=== PATIENT | female | born 1990 | race Caucasian/White ===

== ENCOUNTER → 2017-05-25 | Outpatient (REF) | payer BC | LOC: M LAB REF 12:13 | PROVIDERS: ATTEND Physician Assistant | DX: N39.0 Urinary tract infection, site not specified (principal) ==

== ENCOUNTER → 2017-12-08 | Outpatient (REF) | payer BC | LOC: M LAB REF 19:30 | DX: N39.0 Urinary tract infection, site not specified (principal) ==

== ENCOUNTER → 2018-02-06 | Outpatient (REF) | payer BC ==
[2018-02-06 17:40] LABS: BASO % 0.5 % (0.0-1.0); EOS # 0.2 10^3/uL (0.0-0.50); EOS % 2.4 % (0.0-3.0); HEMATOCRIT 40.9 % (36.0-47.0); HEMOGLOBIN 13.3 g/dl (12.0-15.5); IMMATURE GRANULOCYTE % 0.1 % (0-3.0); LYMPH % 25.5 % (24.0-44.0); MEAN CORPUSCULAR HEMOGLOBIN 31.1 pg (27.0-33.0); MEAN CORPUSCULAR HGB CONC 32.5 g/dl (32.0-36.5); MEAN CORPUSCULAR VOLUME 95.6 fl (80.0-96.0); MONO # 0.5 10^3/uL (0.0-0.8); MONO % 5.8 % (0.0-5.0); NEUTROPHILS # 5.2 10^3/uL (1.8-7.7); NEUTROPHILS % 65.7 % (36.0-66.0); PLATELET COUNT, AUTOMATED 288 10^3/uL (150-450); RED BLOOD COUNT 4.28 10^6/uL (4.00-5.40); RED CELL DISTRIBUTION WIDTH 12.5 % (11.5-14.5); WHITE BLOOD COUNT 7.9 10^3/uL (4.0-10.0)
[2018-02-06 17:47] LABS: ALBUMIN 3.7 GM/DL (3.2-5.2); ALBUMIN/GLOBULIN RATIO 1.12 (1.00-1.93); ALKALINE PHOSPHATASE 54 U/L (45-117); ALT/SGPT 22 U/L (12-78); AMYLASE 75 U/L (25-115); ANION GAP 8 MEQ/L (8-16); AST/SGOT 20 U/L (7-37); BILIRUBIN,TOTAL 0.2 MG/DL (0.2-1.0); BLOOD UREA NITROGEN 6 MG/DL (7-18); CALCIUM LEVEL 8.9 MG/DL (8.5-10.1); CARBON DIOXIDE LEVEL 25 MEQ/L (21-32); CHLORIDE LEVEL 112 MEQ/L (98-107); CREATININE FOR GFR 0.55 MG/DL (0.55-1.30); GLOMERULAR FILTRATION RATE > 60.0 (>60); GLUCOSE, FASTING 83 MG/DL (70-100); LIPASE 644 U/L (73-393); POTASSIUM SERUM 4.4 MEQ/L (3.5-5.1); SODIUM LEVEL 145 MEQ/L (136-145)
== END ==
LOC: M SFHCLERA 11:29
DX: R19.7 Diarrhea, unspecified (principal)
CPT/HCPCS: 82150

== ENCOUNTER → 2018-02-19 | Outpatient (CLI) | payer BC | LOC: M RAD 08:09 | DX: R74.8 Abnormal levels of other serum enzymes (principal); D18.03 Hemangioma of intra-abdominal structures | CPT/HCPCS: 76705 ==

== ENCOUNTER → 2018-09-06 | Outpatient (REF) | payer BC ==
[2018-09-06 12:52] LABS: CHLAMYDIA DNA AMPLIFICATION NEGATIVE (NEGATIVE); GC DNA AMPLIFICATION NEGATIVE (NEGATIVE)
== END ==
LOC: M LAB REF 10:53
PROVIDERS: ATTEND Physician Assistant
DX: R35.0 Frequency of micturition (principal)

== ENCOUNTER → 2018-09-08 | Outpatient (REF) | payer BC ==
[2018-09-08 19:55] LABS: CHLAMYDIA DNA AMPLIFICATION NEGATIVE (NEGATIVE); GC DNA AMPLIFICATION NEGATIVE (NEGATIVE)
== END ==
LOC: M SFHCLERA 12:24
PROVIDERS: ATTEND Nurse Practitioner Family
DX: R30.0 Dysuria (principal)

== ENCOUNTER → 2018-10-01 | Outpatient (REF) | payer BC | LOC: M LAB REF 11:39 | PROVIDERS: ATTEND Physician Assistant | DX: N39.0 Urinary tract infection, site not specified (principal) ==

== ENCOUNTER → 2018-10-05 | Outpatient (CLI) | payer BC ==
--- NOTE | 2018-10-05 14:45 | REP ---
REASON FOR EXAM: Elevated LFTs. There is no complete abdominal ultrasound exam for comparison. Previous right upper quadrant ultrasound examination of 02/19/2018 was reviewed. That examination was normal with the exception of a 1.2 cm sized hepatic hemangioma. The gallbladder is unchanged and again seen to be within normal limits. There is no intrahepatic or extrahepatic ductal dilatation. The common bile duct measures 6 mm. Multiple sonographic images of the liver again show tiny echogenic foci consistent with benign hemangiomas, largest measures 1 cm and is unchanged from the prior exam. The spleen has a maximal dimension of 9 cm and is within normal limits. The right kidney measures 9.5 x 6.1 x 3.3 cm, and the left kidney measures 10.9 x 6.2 x 4.8 cm. In the upper pole of the left kidney, there is a 6 mm sized nonobstructing echogenic focus consistent with a calculus. In the midpole region of the right kidney, there is a similar finding measuring 3 mm. The imaged portion of the pancreas is within normal limits. There is no free fluid in the abdomen. IMPRESSION: 1. Echogenic foci seen in the liver, consistent with benign hemangiomas. 2. Small bilateral nonobstructing nephroliths. Electronically Signed by Kevin Mora DO 10/05/2018 04:38 P
== END ==
LOC: M RAD 07:45
PROVIDERS: ATTEND Nurse Practitioner Adult Health
DX: R74.8 Abnormal levels of other serum enzymes (principal); D18.03 Hemangioma of intra-abdominal structures; N20.0 Calculus of kidney; K76.89 Other specified diseases of liver

== ENCOUNTER → 2019-01-24 | Outpatient (REF) | payer BC | LOC: M LAB REF 16:18 | PROVIDERS: ATTEND Nurse Practitioner Family | DX: R30.0 Dysuria (principal) ==

== ENCOUNTER → 2020-04-27 | Outpatient (REF) | payer BC | LOC: M WUC 10:08 | PROVIDERS: ATTEND Physician Assistant | DX: R30.0 Dysuria (principal) ==

== ENCOUNTER → 2020-05-23 | Outpatient (REF) | payer BC | LOC: M LAB REF 13:18 | PROVIDERS: ATTEND Nurse Practitioner Family | DX: R30.0 Dysuria (principal) ==

== ENCOUNTER 2020-06-03 14:28 | Day surgery (SDC) | payer BC ==
[~2020-06-03] VITALS: Ht 157.5 cm; Wt 61.2 kg
[~2020-06-03 14:28] MED LIST: MIDAZOLAM INJ 2MG/2ML VIAL (J2250 PER 1MG) IV PRN; fentaNYL 100 MCG/2 ML INJECTION (J3010) IV PRN
[2020-06-03] MEDS ORDERED: LR 1,000 ML IV ONE (16:15)
[2020-06-03] MEDS ORDERED: MIDAZOLAM INJ 2MG/2ML VIAL (J2250 PER 1MG) As Ordered ONE (16:16)
[2020-06-03] MEDS ORDERED: fentaNYL 100 MCG/2 ML INJECTION (J3010) As Ordered ONE ×2 (16:16→17:53)
[2020-06-03] MEDS ORDERED: propofoL 200 MG/20 ML VIAL As Ordered ONE (16:18)
[2020-06-03] MEDS ORDERED: LIDOCAINE 2% 100MG/5ML SDV (FOR ANES.) As Ordered ONE (16:18)
[2020-06-03] MEDS ORDERED: dexameTHASONE 4 MG/ML 1ML VIAL (J1100 PER 1MG) As Ordered ONE (16:18)
[2020-06-03] MEDS ORDERED: ROCURONIUM BROMIDE 50 MG/5 ML VIAL As Ordered ONE ×2 (16:18→17:38)
[2020-06-03] MEDS ORDERED: ONDANSETRON 4MG/2ML VIAL As Ordered ONE (16:18)
[2020-06-03] MEDS ORDERED: EPINEPHrine INJ 1 MG/ML 1ML AMP XX ONE (16:30)
[2020-06-03] MEDS ORDERED: ROPIvacaine 0.5% 30ML INJECTION (J2795 PER 1MG) XX ONE (16:30)
[2020-06-03] MEDS ORDERED: dexameTHASONE 10MG/1ML VIAL PRES.FREE (J1100 PER 1MG) XX ONE (16:30)
[2020-06-03] MEDS ORDERED: ceFAZolin 2 GM/D5W 50 ML IV BAG (J0690 PER 500MG) As Ordered ONE (16:35)
[2020-06-03] MEDS ORDERED: ceFAZolin SOD 2 GM in IV 1 EA IV ONE (16:45)
[2020-06-03] MEDS ORDERED: LACRILUBE (AKWA TEARS) OPHTH OINT 3.5 GM As Ordered ONE (16:50)
[2020-06-03] MEDS ORDERED: ACETAMINOPHEN 1000MG 100ML IV BTL (OFIRMEV) (J0131 PER 10MG) As Ordered ONE (17:23)
[2020-06-03] MEDS ORDERED: SUGAMMADEX SODIUM 500 MG/5 ML VIAL (BRIDION) As Ordered ONE (17:29)
[2020-06-03] MEDS ORDERED: METOCLOPRAMIDE INJ 10MG/2ML VIAL (J2765 PER 1) As Ordered ONE (19:02)
[2020-06-03] MEDS ORDERED: TRANEXAMIC ACID 100 MG/ML 10ML VIAL As Ordered ONE (19:57)
--- NOTE | 2020-06-03 20:32 | REP ---
INDICATION: RIGHT ANKLE FRACTURE. COMPARISON: None. TECHNIQUE: Intraoperative fluoroscopic imaging using portable C-arm technique. FINDINGS: Images demonstrate the patient to be status post satisfactory open reduction and fixation for trimalleolar ankle fractures. Total fluoroscopic time 155 seconds. IMPRESSION: Satisfactory open reduction and fixation. <Electronically signed by Denny Galeas > 06/03/202027
[2020-06-03] MEDS ORDERED: fentaNYL 100 MCG/2 ML INJECTION (J3010) IV PRN (21:30)
[2020-06-03] MEDS ORDERED: METOCLOPRAMIDE INJ 10MG/2ML VIAL (J2765 PER 1) IV PRN (21:30)
[2020-06-03] MEDS ORDERED: oxyCODONE 5MG TAB PO PRN (21:30)
[2020-06-03] MEDS ORDERED: ONDANSETRON 4MG/2ML VIAL IV PRN (21:30)
[2020-06-03] MEDS ORDERED: LR 1,000 ML IV SCH (21:30)
[2020-06-03 22:55] VITALS: BP 130/67
--- NOTE | 2020-06-04 09:40 | RO ---
OPERATIVE NOTE DATE OF OPERATION: 06/03/2020 SURGEON: Flako Cochran MD INJECTION MOLDING OPERATOR: Mook Dugan PA-C PREOPERATIVE DIAGNOSIS: Right ankle trimalleolar fracture closed. POSTOPERATIVE DIAGNOSIS: Right ankle trimalleolar fracture closed. NAME OF OPERATION: Right ankle open reduction and internal fixation. FINDINGS: The patient had a trimalleolar fracture of the right ankle with comminution of the distal fibula, posterior malleolus consisting of approximately 15% of the articular surface and medial malleolus fracture. INDICATIONS: This is a 30-year-old female who sustained a ground-level fall after being tripped by one of her dogs on on May,. The patient presented to urgent care where she was splinted in place in situ with posterior slab Ortho-Glass splint. She then presented to the [facility] with right trimalleolar ankle fracture. She is indicated for right ankle open reduction and internal fixation. ANESTHESIA: BEREAVEMENT PROGRAM COORDINATOR. TOURNIQUET TIME: 120 minutes. ESTIMATED BLOOD LOSS: 50 mL. IMPLANTS: Synthes. CULTURES: None. SPECIMENS: None. IV FLUIDS: Please see anesthesia report. IV ANTIBIOTICS: 2 gm Ancef, 1 gm TXA. PROCEDURE IN DETAIL: The patient was met in the preoperative holding area where the patient's operative extremity was signed, consent was confirmed to be correct, and patient's identity was confirmed to be correct. The patient was transported to the operating theater where she was placed in the prone position on radiolucent flat top table. Time out was called. Safety straps secured the patient to the bed, all bony prominences were well padded and the contralateral lower extremity had SCD placed. A timeout was called which confirmed the correct patient, correct operative extremity and correct consent. All staff was in agreement. The patient was then draped in the usual sterile fashion. We began the procedure by obtaining fluoroscopic imaging of the fracture AP and lateral views and to colby out tibial talar joint line. We then proceeded with posterolateral approach. We incised the skin sharply and then used dissecting scissors and scalpel as well as electrocautery in order to identify the interval between the peroneal tendons and the Achilles tendon. The peroneal fascia was incised sharply and then we dissected down to the FHL fascia which was incised sharply. We then elevated the FHL muscle belly from the posterior aspect of the distal tibia in order to gain entry into the posterior malleolus fracture. We then identified the fracture site which was then reduced using ball spike pusher. This was then secured into position using thin K-wire. We then obtained fluoroscopic images. At this point in time we then placed 2.7, one-quarter tubular plate in position using thin wires and confirmed with fluoroscopy that we were satisfied with positioning. We then placed the axillary screw just proximal to the most proximal aspect of the posterior malleolus fracture in order to provide buttress effect. We then placed second 2.7 screw in most proximal hole of the 7-hole plate. At this point in time we used lag bite technique in order to place the most distal screw which further compressed the posterior malleolar fracture into position obtaining fluoroscopic imaging to insure we were satisfied with both the reduction as well as implant placement. We then turned our attention to the distal fibula. Using the interval just anterior to the peroneal tendons we were able to dissect down to the periosteum of the lateral fibula which was incised sharply using scalpel and elevated periosteum and identified the fracture site. There was much comminution which did not allow provisional fixation with a lag screw. However, we were able to use the posterior aspect of the fibula in order to get a cortical godfrey and reestablish the fibular length. This was provisionally secured using a thin wire to hold the comminuted pieces into the correct position so we could correctly obtain fibular length. We obtained fluoroscopic imaging demonstrating roman catholic of the talocrural angle as well as the "dime sign" at the distal aspect of the fibula to ensure that we had restored fibular length. Using these three parameters we were satisfied that we had established provisionally the fibular length. We then secured a distal fibular locking plate to the distal aspect of the fibula using a lateral distal locking plate. We then secured the proximal aspect of the plate using two 3.5 mm cortical screws, initial locking screw just distal to the two cortical screws in order to provide another point of fixation within the fibular plate. At this point in time we obtained mortise view demonstrating that we had preserved both the fibular length and bridged it appropriately and talus was reduced appropriatley within the mortise and by reestablishing both the posterolateral fibular and posterior malleolus length had restored a near anatomic reduction of medial malleolus. We then turned our attention to the medial malleolus where was now reduced appropriately, used percutaneous technique in order to place a 15 mm partially-threaded cannulated 4.0 mm screw in order to provide compression to the medial malleolar fracture. At this point in time we were satisfied with both the posterior malleolar, distal fibular and medial malleolar fracture reduction as well as screw placement and we then performed dorsiflexion external rotation stress test in order to test syndesmosis which was intact. There was no lateral translation of the talus and no tibiofibular clear space at this point. We then placed 1 mm of DBX (demineralized bone matrix) at the comminution impacted bone of the distal fibular fracture after performing copious irrigation of the posterolateral incision and percutaneous medial malleolar incision. We reapproximated the peroneal fascia, closed the dermal layer using 2-0 Vicryl, closed the skin using 3-0 nylon interrupted suture fashion. We closed the incision on the medial aspect using 3-0 nylon suture. The patient was placed in L&U splint with appropriate dorsiflexion and well padded L&U splint. Dressings were Xeroform, 4 x 4, Webril followed by L&U splint. The patient was extubated without complications and transported to the postanesthesia care unit. The patient will follow up with [facility] in two weeks for wound check as well as splint removal. At that point in time she will then initiate range of motion about her right ankle to include exercises to strengthen the ankle musculature. She will be nonweightbearing for an additional four weeks in cam boot for total of six weeks of nonweightbearing. At the end of the six week she can initiate partial weightbearing in cam boot for two weeks before initiating full weightbearing in the cam boot at eight weeks. She will then begin strengthening and follow the [facility] ankle open reduction and internal fixation rehabilitation protocol. The patient will be discharged with the appropriate pain meds and the family will be attempted to be notified of the aforementioned proceedings. JEREMÍAS
== END 2020-06-03 23:10 | disposition home or self-care (01) ==
LOC: M SDC 14:28
PROVIDERS: ATTEND Orthopaedic Surgery
DX: S82.851A Displaced trimalleolar fracture of right lower leg, initial encounter for closed fracture (principal); W01.0XXA Fall on same level from slipping, tripping and stumbling without subsequent striking against object, initial encounter; Y93.9 Activity, unspecified; Y92.9 Unspecified place or not applicable; Y99.9 Unspecified external cause status; F17.210 Nicotine dependence, cigarettes, uncomplicated; F32.9 Major depressive disorder, single episode, unspecified
CPT/HCPCS: 27822; 76000; 81025; C1713; C1762; J0131; J0171; J0690; J1100; J2250; J2405; J2765; J2795; J3010; U0002

== ENCOUNTER → 2020-06-03 | Outpatient (CLI) | payer BC ==
--- NOTE | 2020-06-03 10:00 | REP ---
INDICATION: RT ANKLE INJURY, FX. COMPARISON: None. TECHNIQUE: Axial noncontrast images through the right ankle with coronal and sagittal reformations. FINDINGS: There is a relatively transverse nondisplaced fracture through the distal fibular metaphysis as well as nondisplaced fractures involving the medial and posterior malleoli of the distal tibia. Surrounding posttraumatic subcutaneous infiltration and edema noted. IMPRESSION: Fractures of the distal fibular metaphysis and posterior and medial malleoli of the distal tibia. <Electronically signed by Denny Galeas > 06/03/20 [id number]
== END ==
LOC: M RAD 09:37
PROVIDERS: ATTEND Physician Assistant
DX: S82.851A Displaced trimalleolar fracture of right lower leg, initial encounter for closed fracture (principal)

== ENCOUNTER → 2020-07-15 | Outpatient (REF) | payer BC | LOC: M LAB REF 15:17 | PROVIDERS: ATTEND Physician Assistant | DX: T81.49XA Infection following a procedure, other surgical site, initial encounter (principal) ==

== ENCOUNTER → 2020-10-14 | Outpatient (REF) | payer BC | LOC: M WUC 15:39 | PROVIDERS: ATTEND Physician Assistant | DX: N39.0 Urinary tract infection, site not specified (principal) ==

== ENCOUNTER → 2023-04-28 | Outpatient (REF) | payer BC | LOC: M LAB REF 19:58 | PROVIDERS: ATTEND Physician Assistant | DX: R30.0 Dysuria (principal) ==

== ENCOUNTER → 2025-01-06 | Outpatient (CLI) | payer BC | LOC: M SOG 08:20 | PROVIDERS: ATTEND Neuromusculoskeletal Medicine, Sports Medicine | DX: M25.531 Pain in right wrist (principal); M25.532 Pain in left wrist ==

== ENCOUNTER 2025-03-04 08:58 | Day surgery (SDC) | payer BC ==
[~2025-03-04] VITALS: Ht 157.5 cm; Wt 72.6 kg
[~2025-03-04 08:58] MED LIST changes: +BUPR-766 PO; +LEXA1TAB PO; -MIDAZOLAM INJ 2MG/2ML VIAL (J2250 PER 1MG) IV PRN; -fentaNYL 100 MCG/2 ML INJECTION (J3010) IV PRN
[2025-03-04] MEDS: LR 1,000 ML IV SCH (09:15)
[2025-03-04] MEDS ORDERED: LIDOCAINE 2% 100 MG/5 ML SDV (FOR ANES.) As Ordered ONE (09:43)
[2025-03-04] MEDS ORDERED: MIDAZOLAM INJ 2 MG/2 ML VIAL As Ordered ONE (09:43)
[2025-03-04] MEDS ORDERED: dexAMETHasone 4 MG/ML 1 ML VIAL As Ordered ONE (09:46)
[2025-03-04] MEDS ORDERED: ACETAMINOPHEN 1000MG/100ML IV BAG As Ordered ONE (09:47)
[2025-03-04] MEDS ORDERED: ONDANSETRON 4MG 2ML VIAL As Ordered ONE (10:31)
[2025-03-04] MEDS ORDERED: KETOROLAC 30 MG/ML 1 ML VIAL As Ordered ONE (10:31)
[2025-03-04] MEDS: ceFAZolin SOD 2 GM IV ONCE IV ONE (10:45)
[2025-03-04] MEDS: LIDOCAINE 1% SDV 30 ML VIAL As Ordered ONE (11:22)
[2025-03-04] MEDS ORDERED: SUZE50TA PO (11:22)
[2025-03-04] MEDS ORDERED: LR 1,000 ML IV SCH (11:30)
[2025-03-04] MEDS ORDERED: ONDANSETRON 4MG 2ML VIAL IV PRN (11:30)
[2025-03-04] MEDS ORDERED: HYDROMORPHONE HCL 0.5 MG/0.5 ML SYRINGE IV PRN (11:30)
[2025-03-04 12:42] VITALS: BP 126/74; TEMP 97.3; O2SAT 96
== END 2025-03-04 12:45 | disposition home or self-care (01) ==
LOC: M SDC 08:58
PROVIDERS: ATTEND Neuromusculoskeletal Medicine, Sports Medicine
DX: G56.02 Carpal tunnel syndrome, left upper limb (principal); F32.A Depression, unspecified; F41.9 Anxiety disorder, unspecified; Z79.899 Other long term (current) drug therapy; Z87.891 Personal history of nicotine dependence
CPT/HCPCS: 64721; J0131; J0688; J1100; J1885; J2250; J2405; J3010

== ENCOUNTER 2025-03-18 08:49 | Day surgery (SDC) | payer BC ==
[~2025-03-18] VITALS: Ht 157.5 cm; Wt 71.8 kg
[~2025-03-18 08:49] MED LIST changes: +SUZE50TA PO
[2025-03-18] MEDS: LR 1,000 ML IV SCH (10:10)
[2025-03-18] MEDS ORDERED: LIDOCAINE 2% 100 MG/5 ML SDV (FOR ANES.) As Ordered ONE (10:29)
[2025-03-18] MEDS: LIDOCAINE 1% MDV 20 ML VIAL As Ordered ONE (11:49)
[2025-03-18] MEDS ORDERED: KETOROLAC 30 MG/ML 1 ML VIAL As Ordered ONE (12:13)
[2025-03-18] MEDS ORDERED: ceFAZolin SOD 2 GM IV ONCE IV ONE (12:20)
[2025-03-18] MEDS: LIDOCAINE 1% SDV 30 ML VIAL As Ordered ONE (12:30)
[2025-03-18] MEDS ORDERED: SUZE50TA PO (12:50)
[2025-03-18 13:07] VITALS: BP 121/60; TEMP 97.5; O2SAT 99
== END 2025-03-18 13:10 | disposition home or self-care (01) ==
LOC: M SDC 08:49
PROVIDERS: ATTEND Neuromusculoskeletal Medicine, Sports Medicine
DX: G56.01 Carpal tunnel syndrome, right upper limb (principal); F41.9 Anxiety disorder, unspecified; F32.A Depression, unspecified; Z79.899 Other long term (current) drug therapy; Z87.891 Personal history of nicotine dependence
CPT/HCPCS: 64721; J0688; J1885; J3010